=== PATIENT | male | born 1965 | race Caucasian/White ===

== ENCOUNTER 2021-09-19 10:23 | Emergency (ER) | payer BC ==
[~2021-09-19 10:23] MED LIST: COMPACT COMPRE1 EACH INH; IPRAT-ALBUT 0.5-3 ML INH; MEDROL4 MG PO; PROVENTIL HFA6.7 GM INH; TESSALON PERLE100 MG PO
[2021-09-19 15:05] LABS: HEMOGLOBIN 15.6 gm/dl (14.0-17.5); RED BLOOD COUNT 4.94 M/UL (4.20-5.50); WHITE BLOOD COUNT 14.5 K/UL (4.5-11.0)
[2021-09-19] MEDS ORDERED: FLOMAX 0.4 MG0.4 MG PO (16:04)
[2021-09-20] MEDS ORDERED: HYDROCODON-ACE1 EAC6 PO ×2 (10:07→10:30)
== END 2021-09-19 16:39 | disposition home or self-care (01) ==
LOC: ER1 10:23
PROVIDERS: Nurse Practitioner
DX: N13.2 Hydronephrosis with renal and ureteral calculous obstruction (principal)
CPT/HCPCS: 80053; 81001; 85025; 96372; 99284; J1885; J2360

== ENCOUNTER 2021-09-20 08:18 | Emergency (ER) | payer BC ==
[~2021-09-20 08:18] MED LIST changes: +FLOMAX 0.4 MG0.4 MG PO
[2021-09-20] MEDS ORDERED: HYDROCODON-ACE1 EAC6 PO ×2 (10:07→10:30)
== END 2021-09-20 11:10 | disposition home or self-care (01) ==
LOC: ER1 08:18
DX: N13.2 Hydronephrosis with renal and ureteral calculous obstruction (principal); Z87.442 Personal history of urinary calculi
CPT/HCPCS: 96372; 99283; J1885